=== PATIENT | male | born 1995 | race African-American/Black ===

== ENCOUNTER 2021-09-02 04:21 | Inpatient (IN) | payer OTHER, MEDICAID ==
[~2021-09-02] VITALS: Ht 162.6 cm; Wt 64.2 kg
[2021-09-02] MEDS ORDERED: HALOPERIDOL 5 MG TABLET PO PRN (09:30)
[2021-09-02] MEDS ORDERED: LORazepam 2 MG TABLET PO PRN (09:30)
[2021-09-02 10:00] VITALS: BP 139/80
[2021-09-02 20:17] VITALS: BP 127/72
[2021-09-03 07:02] LABS: BASOPHILS % (AUTO) 0.9 % (0.0-2.0); EOSINOPHILS % (AUTO) 1.6 % (1.0-6.0); HEMATOCRIT 46.1 % (41-53); HEMOGLOBIN 15.8 g/dL (13.5-17.5); LYMPHOCYTES % (AUTO) 31.3 % (22.0-44.0); MEAN CORPUSCULAR HEMOGLOBIN 29.8 pg (26.0-34.0); MEAN CORPUSCULAR HGB CONC 34.3 G/dL (31.0-37.0); MEAN CORPUSCULAR VOLUME 87 fL (80-100); MONOCYTES # (AUTO) 0.4 K/uL (0.1-1.0); MONOCYTES % (AUTO) 6.2 % (2.0-9.0); NEUTROPHILS # (AUTO) 3.8 K/uL (1.8-7.7); PLATELET COUNT (AUTO) 289 K/uL (150-450); RED BLOOD CELL COUNT(AUTO) 5.31 MIL/uL (4.50-5.90); RED CELL DISTRIBUTION WIDTH 12.9 % (11.5-14.5)
[2021-09-03 07:08] LABS: HEMOGLOBIN A1C 5.5 % (3.8-5.6)
[2021-09-03 07:26] LABS: ALANINE AMINOTRANSFERASE 19 U/L (12-78); ALBUMIN 4.2 g/dL (3.4-5.0); ALKALINE PHOSPHATASE 57 U/L (46-116); ANION GAP 7 mmol/L (8-16); ASPARTATE AMINOTRANSFERASE 12 U/L (15-37); BILIRUBIN,TOTAL 0.4 mg/dL (0.1-1.0); CALCIUM, TOTAL 9.3 mg/dL (8.8-10.5); CARBON DIOXIDE 31 mmol/L (22-29); CHLORIDE 103 mmol/L (98-107); CHOL/HDL RATIO 3.2 (4.2-7.3); CHOLESTEROL 187 mg/dL (131-200); CREATININE 1.06 mg/dL (0.60-1.30); FREE T4 (FREE THYROXINE) 1.11 ng/dL (0.76-1.46); GLUCOSE,RANDOM 94 mg/dL (70-110); HDL CHOLESTEROL 59 mg/dL (40-60); LDL CHOL (CALC.) 119 mg/dL (0-130); SODIUM SERUM 141 mmol/L (136-145); THYROID STIMULATING HORMONE 2.33 uIU/mL (0.36-3.74); TOTAL PROTEIN, SERUM 7.2 g/dL (6.4-8.2); TRIGLYCERIDES 43 mg/dL (15-150); UREA NITROGEN, BLOOD 17 mg/dL (7-18)
[2021-09-03 07:27] LABS: GLOMERULAR FILTR. RATE CALC > 60 mL/min (>60)
[2021-09-03 08:10] VITALS: BP 133/90
[2021-09-03] MEDS ORDERED: ONDANSETRON HCL 4 MG TABLET PO PRN (10:00)
[2021-09-03] MEDS ORDERED: ACETAMINOPHEN 325 MG TABLET PO PRN (10:00)
[2021-09-03] MEDS ORDERED: MAG HYDROX/AL HYDROX/SIMETH ES 30 ML SUSPENSION UDCUP PO PRN (10:00)
[2021-09-03] MEDS ORDERED: NICOTINE 14 MG/24 HOUR PATCH TD PRN (10:00)
[2021-09-03] MEDS ORDERED: LOPERAMIDE HCL 2 MG CAPSULE PO PRN (10:00)
[2021-09-03] MEDS ORDERED: GuaiFENesin/D-METHORPHAN [SUGAR-FREE] 200-20MG/10 ML SYRUP UDCUP PO PRN (10:00)
[2021-09-03] MEDS ORDERED: IBUPROFEN 400 MG TABLET PO PRN (10:00)
[2021-09-03] MEDS ORDERED: PETROLATUM,WHITE 28 GM JELLY TP PRN (10:00)
[2021-09-03] MEDS ORDERED: MAGNESIUM HYDROXIDE SUSPENSION 30 ML UDCUP PO PRN (10:00)
[2021-09-03] MEDS ORDERED: ALBUTEROL SULFATE HFA 90 MCG/PUFF 8 GM INHALER IH PRN (10:00)
[2021-09-03] MEDS ORDERED: CloNIDine HCL 0.1 MG TABLET PO PRN (10:00)
[2021-09-03] MEDS ORDERED: DOCUSATE SODIUM 100 MG CAPSULE PO PRN (10:00)
[2021-09-03] MEDS: SERTRALINE HCL 50 MG TABLET PO SCH (12:06)
[2021-09-03 20:12] VITALS: BP 133/67
[2021-09-04 00:32] VITALS: BP 129/66
[2021-09-04 08:05] VITALS: BP 132/90
[2021-09-04] MEDS: SERTRALINE HCL 50 MG TABLET PO SCH (08:26)
[2021-09-04] MEDS: ZOLPIDEM TARTRATE 10 MG TABLET PO PRN (20:15)
[2021-09-04 20:17] VITALS: BP 131/82
[2021-09-05 08:35] VITALS: BP 138/84
[2021-09-05] MEDS: SERTRALINE HCL 50 MG TABLET PO SCH (09:19)
[2021-09-05 20:27] VITALS: BP 143/75
[2021-09-05] MEDS: ZOLPIDEM TARTRATE 10 MG TABLET PO PRN (22:15)
[2021-09-06 08:21] VITALS: BP 102/66
[2021-09-06] MEDS: SERTRALINE HCL 50 MG TABLET PO SCH (08:36)
[2021-09-06 20:12] VITALS: BP 147/70
[2021-09-06] MEDS: ZOLPIDEM TARTRATE 10 MG TABLET PO PRN (22:03)
[2021-09-07 06:58] LABS: APPEARANCE,URINE CLEAR (CLEAR); BILIRUBIN,URINE NEGATIVE (NEGATIVE); GLUCOSE, URINE (UA) NEGATIVE (NEGATIVE); KETONES,URINE NEGATIVE (NEGATIVE); LEUKOCYTE ESTERASE ,URINE NEGATIVE (NEGATIVE); NITRATE,URINE NEGATIVE (NEGATIVE); OCCULT BLOOD,URINE NEGATIVE (NEGATIVE); PROTEIN,URINE NEGATIVE (NEGATIVE); SPECIFIC GRAVITIY, URINE 1.006 (1.003-1.030); UROBILINOGEN,URINE <=1.0 mg/dL (<=1.0)
[2021-09-07 07:05] LABS: AMPHET/METH SCREEN,URINE NEGATIVE (NEGATIVE); BARBITURATE SCREEN, URINE NEGATIVE (NEGATIVE); BENZODIAZEPINES SCREEN,URINE NEGATIVE (NEGATIVE); CANNABINOID SCREEN,URINE NEGATIVE (NEGATIVE); COCAINE SCREEN,URINE NEGATIVE (NEGATIVE); METHADONE SCREEN, URINE NEGATIVE (NEGATIVE); OPIATE SCREEN,URINE NEGATIVE (NEGATIVE)
[2021-09-07 07:09] LABS: PHENCYCLIDINE SCREEN,URINE NEGATIVE (NEGATIVE)
[2021-09-07 08:30] VITALS: BP 128/71
[2021-09-07] MEDS: SERTRALINE HCL 50 MG TABLET PO SCH (08:58)
[2021-09-07 11:21] LABS: GLUCOMETER DEV NAME(LOC) POC.BV
[2021-09-07 20:15] VITALS: BP 133/78
[2021-09-07] MEDS: ZOLPIDEM TARTRATE 10 MG TABLET PO PRN (22:01)
[2021-09-08 08:06] VITALS: BP 131/71
[2021-09-08] MEDS: SERTRALINE HCL 50 MG TABLET PO SCH (08:14)
[2021-09-08] MEDS ORDERED: SERTRALINE HCL 50 MG TABLET PO ONE (11:45)
[2021-09-08 20:34] VITALS: BP 132/79
[2021-09-08] MEDS: ZOLPIDEM TARTRATE 10 MG TABLET PO PRN (22:04)
[2021-09-09 08:23] VITALS: BP 140/80
[2021-09-09] MEDS: SERTRALINE HCL 100 MG TABLET PO SCH (08:26)
[2021-09-09 20:15] VITALS: BP 132/83
[2021-09-09] MEDS: TraZODone HCL 50 MG TABLET PO SCH (20:36)
[2021-09-09] MEDS: ZOLPIDEM TARTRATE 10 MG TABLET PO PRN (22:03)
[2021-09-10] MEDS: SERTRALINE HCL 100 MG TABLET PO SCH (08:06)
[2021-09-10 09:32] VITALS: BP 105/66
[2021-09-10] MEDS: TraZODone HCL 50 MG TABLET PO SCH (20:24)
[2021-09-10 20:52] VITALS: BP 116/63
[2021-09-10] MEDS: ZOLPIDEM TARTRATE 10 MG TABLET PO PRN (22:03)
[2021-09-11 08:56] VITALS: BP 120/72
[2021-09-11] MEDS: SERTRALINE HCL 100 MG TABLET PO SCH (09:12)
[2021-09-11] MEDS: TraZODone HCL 50 MG TABLET PO SCH (20:15)
[2021-09-11 20:44] VITALS: BP 122/72
[2021-09-11] MEDS: ZOLPIDEM TARTRATE 10 MG TABLET PO PRN (21:08)
[2021-09-12 08:25] VITALS: BP 115/72
[2021-09-12] MEDS: SERTRALINE HCL 100 MG TABLET PO SCH (08:40)
[2021-09-12 20:25] VITALS: BP 140/83
[2021-09-12] MEDS: TraZODone HCL 50 MG TABLET PO SCH (20:45)
[2021-09-13 00:30] VITALS: BP 141/85
[2021-09-13] MEDS: ZOLPIDEM TARTRATE 10 MG TABLET PO PRN ×2 (01:50→21:56)
[2021-09-13] MEDS: SERTRALINE HCL 100 MG TABLET PO SCH (08:19)
[2021-09-13 08:40] VITALS: BP 123/76
[2021-09-13] MEDS: TraZODone HCL 50 MG TABLET PO SCH (20:34)
[2021-09-13 21:29] VITALS: BP 140/80
[2021-09-14 08:39] VITALS: BP 140/80
[2021-09-14] MEDS: SERTRALINE HCL 100 MG TABLET PO SCH (08:42)
[2021-09-14 16:31] LABS: GLUCOMETER DEV NAME(LOC) POC.BV
[2021-09-14 20:27] VITALS: BP 118/77
[2021-09-14] MEDS: TraZODone HCL 50 MG TABLET PO SCH (20:41)
[2021-09-15 08:19] VITALS: BP 116/70
[2021-09-15] MEDS: SERTRALINE HCL 100 MG TABLET PO SCH (09:11)
[2021-09-15 20:29] VITALS: BP 135/76
[2021-09-15] MEDS: TraZODone HCL 50 MG TABLET PO SCH (20:38)
[2021-09-16] MEDS: SERTRALINE HCL 100 MG TABLET PO SCH (09:01)
[2021-09-16 09:09] VITALS: BP 142/72
[2021-09-16] MEDS: TraZODone HCL 50 MG TABLET PO SCH (20:16)
[2021-09-16 20:23] VITALS: BP 134/82
[2021-09-17] MEDS: SERTRALINE HCL 100 MG TABLET PO SCH (08:50)
[2021-09-17 09:05] VITALS: BP 139/83
[2021-09-17 20:24] VITALS: BP 142/86
[2021-09-17] MEDS: TraZODone HCL 50 MG TABLET PO SCH (20:24)
[2021-09-17] MEDS: ZOLPIDEM TARTRATE 10 MG TABLET PO PRN (23:54)
[2021-09-18 08:20] VITALS: BP 138/84
[2021-09-18] MEDS: SERTRALINE HCL 100 MG TABLET PO SCH (09:00)
[2021-09-18 20:25] VITALS: BP 154/96
[2021-09-18] MEDS: TraZODone HCL 50 MG TABLET PO SCH (20:33)
[2021-09-19 08:49] VITALS: BP 120/83
[2021-09-19] MEDS: SERTRALINE HCL 100 MG TABLET PO SCH (09:10)
[2021-09-19] MEDS: TraZODone HCL 50 MG TABLET PO SCH (20:30)
[2021-09-19 20:35] VITALS: BP 126/81
[2021-09-20 08:54] VITALS: BP 118/74
[2021-09-20] MEDS: SERTRALINE HCL 100 MG TABLET PO SCH (09:21)
[2021-09-20] MEDS: TraZODone HCL 50 MG TABLET PO SCH (20:12)
[2021-09-20 20:31] VITALS: BP 134/70
[2021-09-21] MEDS: SERTRALINE HCL 100 MG TABLET PO SCH (08:04)
[2021-09-21 08:39] VITALS: BP 125/73
[2021-09-21] MEDS ORDERED: SERT-440 PO (13:40)
[2021-09-21] MEDS ORDERED: TRAZ-252 PO (13:40)
[2021-09-21 15:41] LABS: GLUCOMETER DEV NAME(LOC) POC.BV
== END 2021-09-21 14:50 | disposition home or self-care (01) | DRG 881 ==
LOC: B2S 08:47
PROVIDERS: ADMIT Psychiatry & Neurology Psychiatry; ATTEND Psychiatry & Neurology Psychiatry
DX: F32.9 Major depressive disorder, single episode, unspecified (principal); R45.851 Suicidal ideations; F41.9 Anxiety disorder, unspecified; G47.00 Insomnia, unspecified; K59.00 Constipation, unspecified; Z20.822 Contact with and (suspected) exposure to COVID-19; Z59.00 Homelessness unspecified; Z79.899 Other long term (current) drug therapy
CPT/HCPCS: 80053; 80061; 80307; 81003; 83036; 84436; 84439; 84443; 85025; 86592; G0480